=== PATIENT | male | born 1995 | race Caucasian/White ===

== ENCOUNTER 2020-11-14 17:15 | Emergency (ER) | payer OTHER ==
--- NOTE | 2020-11-14 18:00 | XRAY Report ---
PROCEDURE: Chest 2 View X-Ray INDICATIONS: cough/sore throat TECHNIQUE: 2 view(s) of the chest. COMPARISON: None. FINDINGS: Surgical changes and devices: None. Lungs and pleura: No pleural effusions or pneumothorax. Lungs are clear. Mediastinum: Mediastinal contours are normal. Heart size is normal. Bones and chest wall: No suspicious bony abnormalities. Soft tissues appear unremarkable. IMPRESSION: No acute cardiopulmonary disease process. Reviewed by: Rita Beebe MD, PhD on 11/14/2020 4:58 PM [facility] Approved by: Rita Beebe MD, PhD on 11/14/2020 4:58 PM [facility] Station ID: [id number]
[2020-11-14 18:35] LABS: RAPID STREP SCREEN Negative (Negative)
--- NOTE | 2020-11-14 19:21 | ED Physician Documentation ---
History of Present Illness - Stated complaint Stated Complaint: FEVER - Chief complaint Chief Complaint: Fever - History obtained from History obtained from: Patient - History of Present Illness Timing: How many days ago (3) Pain level max: 4 Pain level now: 3 - Additonal information Additional information: 25 year old male with fever, cough, chills for the past 3 days. Patient was seen at [facility]. Covid testing performed. He states he went home and had another fever so came into the emergency department. Cough is mildly productive. No vomiting. No abdominal pain. No diarrhea or constipation. Positive rhinorrhea and congestion. Nothing makes it better or worse. Review of Systems Constitutional: reports: Fever Nose: reports: Rhinorrhea / runny nose, Congestion Throat: reports: Sore throat Cardiac: denies: Chest pain / pressure Respiratory: reports: Cough. denies: Dyspnea, Wheezing GI: denies: Vomiting Skin: denies: Rash Musculoskeletal: denies: Neck pain, Back pain Neurologic: denies: Headache PD PAST MEDICAL HISTORY - Past Medical History Past Medical History: No - Past Surgical History Past Surgical History: No - Present Medications Home Medications: Ambulatory Orders Medication Instructions Recorded Confirmed No Known Home Medications 11/14/20 11/14/20 - Allergies Allergies/Adverse Reactions: Allergies Allergy/AdvReac Type Severity Reaction Status Date / Time melon AdvReac Rash Verified 11/14/20 17:44 - Social History Does the pt smoke?: No Smoking Status: Never smoker Does the pt drink ETOH?: No Does the pt have substance abuse?: No - Immunizations Immunizations are current?: Yes - POLST Patient has POLST: No PD ED PE NORMAL - Vitals Vital signs reviewed: Yes - General General: Alert and oriented X 3, No acute distress, Well developed/nourished - HEENT HEENT: PERRL, Ears normal, Moist mucous membranes, Pharynx benign - Neck Neck: Supple, no meningeal sign, No adenopathy - Cardiac Cardiac: RRR, Strong equal pulses - Respiratory Respiratory: No respiratory distress, Clear bilaterally - Abdomen Abdomen: Soft, Non tender, Non distended - Derm Derm: Warm and dry, No rash - Extremities Extremities: No edema - Neuro Neuro: Alert and oriented X 3 - Psych Psych: Normal mood, Normal affect Results - Vitals Vitals: Vital Signs - 24 hr 11/14/20 11/14/20 11/14/20 17:32 17:42 19:34 Temperature 38.0 C H 38.7 C H Heart Rate 125 H 111 H 101 H Respiratory 20 18 18 Rate Blood Pressure 128/80 120/79 122/77 O2 Saturation 96 97 98 Oxygen O2 Source Room air - Labs Labs: Laboratory Tests 11/14/20 18:20 Group A Strep Rapid Negative - Rads (name of study) cxr Radiology: Prelim report reviewed, EMP read contemporaneously, See rad report (no acute disease) PD MEDICAL DECISION MAKING - ED course Complexity details: reviewed results, re-evaluated patient, considered differential, d/w patient ED course: 25-year-old male presents to the emergency department with what appears to be a viral upper respiratory infection. Covid testing performed. Patient is well- appearing, nontoxic. No acute findings on chest x-ray. No hypoxia. No respiratory distress. He received prescriptions earlier today for symptomatic care. Patient counseled regarding signs and symptoms for which I believe and urgent re-evaluation would be necessary. Patient with good understanding of and agreement to plan and is comfortable going home at this time This document was made in part using voice recognition software. While efforts are made to proofread this document, sound alike and grammatical errors may occur. Departure - Departure Disposition: 01 Home, Self Care Clinical Impression: Viral syndrome Fever Qualifiers: Fever type: unspecified Qualified Code(s): R50.9 - Fever, unspecified Condition: Good Instructions: ED Fever Control, ED Viral Syndrome Follow-Up: your,doctor in 1 week [Other] Comments: [facility]. Drink plenty of fluids and rest. You have a Covid test pending. You need to self quarantine until the result is done and negative. Do not leave your house. Do not get near anybody. The results should be done in 48 to 72 hours. We will call with a positive result, the fastest way to get a negative result for confirmation though is to go to the hospital website at [email or web address], click on the my [facility] tab and sign up for the patient portal. If any friends or family get sick and would like to have a Covid test done, but do not have signs or symptoms that would necessitate being hospitalized, we encourage testing through our coronavirus swabbing station, call [phone] to schedule an appointment. Discharge Date/Time: 11/14/20 19:34
[2020-11-14 19:35] VITALS: BP 122/77
== END 2020-11-14 19:34 | disposition home or self-care (01) ==
LOC: ED 17:15
DX: U07.1 COVID-19 (principal); J06.9 Acute upper respiratory infection, unspecified
CPT/HCPCS: 87070; 87430; 99284

== ENCOUNTER 2022-02-07 14:46 | Outpatient (CLI) | payer OTHER ==
--- NOTE | 2022-02-07 17:10 | MRI Report ---
PROCEDURE: Foot LT W/O INDICATIONS: PAINFUL LEFT FOOT TECHNIQUE: Noncontrast sagittal T1 spin echo and T2 fast spin echo with fat saturation, long-axis T1 spin echo a nd T2 fast spin echo with fat saturation, short-axis proton density fast spin echo and T2 fast spin e cho with fat saturation through the forefoot. COMPARISON: None. FINDINGS: Image quality: Excellent. BONES AND JOINTS: No bone marrow contusions or metatarsal stress fractures. Prominent effusions of the first through third metatarsal heads. T2 hyperintense signal about the third metatarsal interosse ous ligament with discontinuity. The sesamoid bones appear in expected positions, without internal edema. No metatarsophalangeal join t degeneration. No intraosseous lesions. SOFT TISSUES: The visualized plantar foot muscles demonstrate normal signal and bulk. Visualized fl exor and extensor tendons appear intact, without tenosynovitis. No soft tissue ganglion cysts or bur vanda fluid collections. Sagittal images demonstrate minimal T2 hyperintense signal of the medial band of the plantar fascia, which may reflect fasciitis. IMPRESSION: 1. Prominent 1st-3rd metatarsal joint effusion. 2. Edema about the third metatarsal intraosseous ligament with discontinuity, compatible tear. 3. Minimal edematous signal along the medial band of the plantar fascia, concerning for fasciitis. Reviewed by: Carlos Juarez MD on 02/07/2022 5:08 PM PDT Approved by: Carlos Juarez MD on 02/07/2022 5:08 PM PDT Station ID: [id number]
== END 2022-02-07 14:47 | disposition home or self-care (01) ==
LOC: DI 14:46
PROVIDERS: ATTEND Podiatrist
DX: M79.672 Pain in left foot (principal); M25.475 Effusion, left foot